=== PATIENT | male | born 1935 | race Caucasian/White ===

== ENCOUNTER 2017-07-30 11:07 | Day surgery (SDC) | payer MEDICARE ==
[2017-07-30] MEDS ORDERED: FURO20TA PO (12:09)
[2017-07-30] MEDS ORDERED: ATOR10TA15 PO (12:09)
[2017-07-30] MEDS ORDERED: ASPI325T PO (12:09)
[2017-07-30] MEDS ORDERED: FINA5TAB2 PO (12:09)
[2017-07-30] MEDS ORDERED: MIDAZOLAM HCL 5 MG/5 ML VIAL ONE (12:50)
[2017-07-30] MEDS ORDERED: MUPIROCIN 2% OINT 1 APPLIC/GM SYR NASAL SCH (13:00)
[2017-07-30] MEDS ORDERED: POVIDONE IODINE 5% (ANTISEPSIS KIT) 4 APPLICATIONS EACH NARE SCH (13:00)
[2017-07-30] MEDS ORDERED: VANCOMYCIN 1000 MG/NS 250 ML IV SCH ×2 (13:00)
[2017-07-30] MEDS ORDERED: ceFAZolin 2 GM PREMIX 50 ML IV SCH (13:00)
[2017-07-30] MEDS ORDERED: CHLORHEXIDINE GLUCONATE 2 % 1 PACK (2 CLOTHS) TOPICAL SCH (13:00)
--- NOTE | 2017-07-31 06:25 | MR ---
cc: DARYN POLK MD DATE 07/30/2017 INDICATIONS CVA. Evaluation for atrial fibrillation. PROCEDURE PERFORMED 1. Placement of Medtronic Reveal LINQ MRI-compatible loop monitor. 2. Moderate sedation. ACCESS SITE Left subclavicular area. EQUIPMENT USED [employer] LINQ Model LMQ11 MRI-compatible loop monitor, Serial #[id number]. MEDICATIONS 1. Versed IV. 2. Fentanyl IV. PROCEDURE The left chest was prepped and draped in the usual sterile manner. Local anesthesia was applied. Medtronic Reveal LINQ monitor was placed without difficulty in the left anterior chest. R-wave was 0.53 mV. The patient was discharged home in stable condition. DIAGNOSIS Successful placement of Medtronic Reveal LINQ MRI-compatible loop monitor. DISPOSITION Mr. Eaton will continue his current medical program. I will see him back for followup in our office after discharge. Daryn Polk MD OQ/SSB /2:03 PM /6:12 AM
== END 2017-07-30 14:35 | disposition home or self-care (01) ==
LOC: HDOC 11:07 → HDIC 11:10 → HDOC 14:35
PROVIDERS: ATTEND Internal Medicine Interventional Cardiology
DX: I48.91 Unspecified atrial fibrillation (principal); I63.9 Cerebral infarction, unspecified; Q25.3 Supravalvular aortic stenosis; I36.1 Nonrheumatic tricuspid (valve) insufficiency; E78.5 Hyperlipidemia, unspecified; I10 Essential (primary) hypertension
CPT/HCPCS: 33282; C1764; J0690; J2250; J3010